=== PATIENT | female | born 1975 | race Caucasian/White ===

== ENCOUNTER 2021-09-23 13:41 | Emergency (ER) | payer OTHER ==
[~2021-09-23 13:41] MED LIST: AMARYL 2MG TABLE2 MG PO; PERCOCET 5/325 T1 EA PO; PROGESTERONE PO; ZOFRAN4 MG PO
[2021-09-23 14:47] LABS: HEMOGLOBIN 13.9 gm/dl (12.3-15.3); RED BLOOD COUNT 4.4 M/UL (4.00-5.10); WHITE BLOOD COUNT 9.5 K/UL (4.5-11.0)
[2021-09-23 15:12] LABS: BUN/CREATININE RATIO 20 (0-10)
[2021-09-23] MEDS ORDERED: HYDROCODON-ACE1 EAC4 PO (16:45)
== END 2021-09-23 16:48 | disposition home or self-care (01) ==
LOC: ER1 13:41
PROVIDERS: Emergency Medicine
DX: E11.649 Type 2 diabetes mellitus with hypoglycemia without coma (principal); N83.202 Unspecified ovarian cyst, left side; I10 Essential (primary) hypertension; Z90.710 Acquired absence of both cervix and uterus
CPT/HCPCS: 80053; 81001; 83690; 84703; 85025; 96374; 99284; J1200; J2270; Q9967